=== PATIENT | male | born 1965 | race Caucasian/White ===

== ENCOUNTER 2020-07-01 18:01 | Emergency (ER) | payer MEDICARE, OTHER ==
[~2020-07-01] VITALS: Ht 182.9 cm; Wt 83.5 kg
[~2020-07-01 18:01] MED LIST: ACETAMINOPHEN325 M1 PO; AMLODIPINE BESY10 MG PO; ASCORBIC ACID500 MG PO; ASPIRIN ENTERI325 MG PO; Cholecalciferol PO; DIOVAN80 MG PO; DOXEPIN HCL10 MG PO; ENBREL50 MG/1 ML SC; HYDROCHLOROTH12.5 MG PO; MIRTAZAPINE45 MG PO; NAPROXEN500 MG PO; SERTRALINE HCL50 MG PO; ZINC SULFATE220 M1 PO
--- OUTSIDE RECORDS SUMMARY | 2020-07-01 18:47 | XMS REPORT | Continuity of Care Document ---
Author Author [facility] t Organization [facility] Address [address] [place] [id number] Phone Unavailable Care Team Providers Care Cloth Dyeing Range Tender Name Role Phone NO, PCP PCP Unavailable ROXANE OLIVER Attphys Unavailable ROXANE OLIVER Admphys Unavailable Payers Payer Name Policy Type Policy Number Effective Date Expiration Date Dat [place] Medicare A & B [id number] 2013 00:00:00 [facility] [id number] [facility] Problems Condition Name Condition Details Condition Category Status Onset Date Resolution Date Last Treatment Date Treating Clinician Comments Source Pneumonia Problem Active [facility] Altered mental status Problem Active [facility] Allergies, Adverse Reactions, Alerts This patient has no known allergies or adverse reactions. Social History Social Habit Start Date Stop Date Quantity Comments Source Sex Assigned At 1965 00:00:00 1965 00[birth year]:00 Male [facility] Medications Ordered Medication Name Filled Medication Name Start Date Stop Da te Current Medication? Ordering Clinician Indication Dosage Frequency Signature (SIG) Comments Components Source Ascorbic Acid Ascorbic Acid 2020-06-22 13:48:00 Yes 10 00 Twice A Day [facility] Aspirin (Aspirin Enteric Coated) 325 Mg TABEC Aspirin (Aspirin Enteric Coated) 325 Mg TABEC 2020-06-22 13:48:00 Yes 325 Daily for C ovid [facility] Cholecalciferol Cholecalciferol 2020-06-22 13:48:00 Yes 400 Daily [facility] Zinc Sulfate Zinc Sulfate 2020-06-22 13:48:00 Yes 220 Twice A Day [facility] Acetaminophen Acetaminophen 2020-06-22 13:43:00 Yes 650 Every 6 Hours as needed for Mild Pain (1-3) Or Fever>100.8 [facility] Valsartan (Diovan) 80 Mg TAB Valsartan (Diovan) 80 Mg TAB 2020-05-31 4 13:43:00 Yes 80 Bedtime [facility] Doxepin Hcl Doxepin Hcl Yes 10 Daily [facility] Etanercept (Enbrel) 50 Mg/1 Ml DISP.SYRIN Etanercept ( Enbrel) 50 Mg/1 Ml DISP.SYRIN Yes 50 Weekly [facility] Hydrochlorothiazide Hydrochlorothiazide Yes 12.5 Daily [facility] Mirtazapine Mirtazapine Yes 45 Bedtime [facility] Naproxen Naproxen Yes 500 Twice A Day for Prn Pa in [facility] Sertraline Hcl Sertraline Hcl Yes 50 Daily [facility] Amlodipine Besylate Amlodipine Besylate 2020-06-22 00:00:[address] [facility] Vital Signs Vital Name Observation Time Observation Value Comments Source Body Temperature 2020-06-22 12:19:00 98.1 [degF] [facility] Weight 2020-06-22 01:09:00 184.13 [lb_av] [facility] BMI (Body Mass Index) 2020-06-22 01:09:00 25.0 kg/m2 [facility] Procedures Procedure Date / Time Performed Performing Clinician [facility] e Magnetic resonance imaging of brain without contrast 2020-06-22 00:00:00 [facility] Computed tomography of brain without radiopaque contrast 2020-05 00:00:00 [facility] Plan of Care Planned Activity Planned Date Details Comments Source Instructions COVID-19: 02/13/2020 [facility] Encounters Start Date/Time End Date/Time Encounter Type Admission Type Attendi [facility] Care Department Encounter ID Source 2020-06-20 17:18:00 2020-06-22 17:00:00 Discharged Inpatient 1 KILLAM, ROXANE [facility] [id number] [facility] Results Test Description Test Time Test Comments Results Result Comments Source MRI BRAIN WO 2020-06-22 10:41:00 [facility] [address] [address] Patient Name: UGS GALEANO MR #: [id number] : 1965 Age/Sex: 55/M Req #: [id number] Adm Physician: ROXANE OLIVER MD Ordered by: PRINCE DE SANTIAGO MD Report #: [id number] Location: [facility] Room/Bed: [place] [address] Procedure: [id number] MRI/MRI BRAIN WO Exam Date: Exam Time: REPORT STATUS: Signed History: Altered mental status/lethargy in a COVID + patient Comparison studies: Head CT 06/20/2020. Technique: Sagittal and axial T2 FS, axial DWI, axial T2*GRE, axial T1 FLAIR and axial coronal T2 FLAIR. Intravenous contrast: None Findings: Scalp: Normal in signal. No masses. Bone marrow: Normal in signal intensity. Brain sulci: Appropriate for age. Ventricles: Normal in size. No hydrocephalus. Extra axial spaces: No mass, no fluid collection. Parenchyma: No abnormal signal intensities. No masses, hemorrhage, acute ischemia chronic cortical insults. Suprasellar region: No abnormalities. Craniocervical junction: Patent foramen magnum. No Chiari malformation. Vessels: Normal flow-voids in the arteries and sinuses. IMPRESSION: 1. No intracranial abnormalities. 2. No changes from the prior head CT of 06/20/2020. Signed by: Dr. Pinky Mcgowan M.D. on 06/22/2020 10:48 AM Dictated By: PINKY MCGOWAN MD 47 Transcribed By: LISA on 06/22/201047 COPY TO: PRINCE DE SANTIAGO MD Blood leukocytes automated count (number/volume) 2020-06-21 05:19:00 Test Item White Blood Count (test code = 6690-2) 7.31 4.8-10.8 [facility] erythrocytes automated count (number/volume)2020-06-21 05:19:00* Test Item Value Reference Range Interpretation Comments Red Blood Count (test code = 789-8) 5.48 4.3-5.7 [facility] hemoglobin measurement (moles/volume)2020-06-21 05:19:00* Test Item Value Reference Range Interpretation Comments Hemoglobin (test code = 08124-3) 16.5 14.0-18.0 [facility] Austin[facility] blood hematocrit (volume fraction)2020-06-21 05:19:00* Test Item Value Reference Range Interpretation Comments Hematocrit (test code = 4544-3) 48.7 38.2-49.6 [facility] AustinAutom[facility] erythrocyte mean corpuscular kgcams1686-96-28 05:19:00* Test Item Value Reference Range Interpretation Comments Mean Corpuscular Volume (test code = 787-2) 88.9 81-99 [facility] Austin[facility] erythrocyte mean corpuscular hemoglobin (mass per erythrocyte)2020-06-21 05:19:00* Test Item Value Reference Range Interpretation Comments Mean Corpuscular Hemoglobin (test code = 785-6) 30.1 28-32 [facility] Austin[facility] erythrocyte mean corpuscular hemoglobin concentration measurement (mass/volume)2020-06-21 05:19:00* Test Item Value Reference Range Interpretation Comments Mean Corpuscular Hemoglobin Concent (test code = 786-4) 33.9 31-35 [facility] AustinRDW YnkXl-Fic0992-13-23 05:19:00* Test Item Value Reference Range Interpretation Comments Red Cell Distribution Width (test code = 84214-0) 13.6 11.7 -14.4 [facility] Austin[facility] blood platelet count (count/volume)2020-06-21 05:19:00* Test Item Value Reference Range Interpretation Comments Platelet Count (test code = 777-3) 213 140-360 [facility] AustinAutom[facility] blood segmented neutrophil count as percentage of total yirhgcvrwm8751-31-10 05:19:00* Test Item Value Reference Range Interpretation Comments Neutrophils (%) (Auto) (test code = 58642-4) 68.1 38.7-80.0 [facility] Austin[facility] blood lymphocyte count as percentage ot total ytiauruiuh0208-24-07 05:19:00* Test Item Value Reference Range Interpretation Comments Lymphocytes (%) (Auto) (test code = 736-9) 17.5 18.0-39.1 [facility] AustinAutom[facility] blood monocyte count as percentage of total kjjwzwhmlt0479-75-98 05:19:00* Test Item Value Reference Range Interpretation Comments Monocytes (%) (Auto) (test code = 5905-5) 12.6 4.4-11.3 [facility] Austin[facility] blood eosinophil count as percentage of total lznypkoiel3263-93-35 05:19:00* Test Item Value Reference Range Interpretation Comments Eosinophils (%) (Auto) (test code = 713-8) 1.1 0.0-6.0 [facility] Austin[facility] blood basophil count as percentage of total zfhmlocioc7191-24-86 05:19:00* Test Item Value Reference Range Interpretation Comments Basophils (%) (Auto) (test code = 706-2) 0.3 0.0-1.0 [facility] AustinFluoroscopic procedure less than one hour kebumtuk0273-59-03 05:19:00* Test Item Value Reference Range Interpretation Comments IM GRANULOCYTES % (test code = IM GRANULOCYTES %) 0.4 0.0- 1.0 [facility] Austin[facility] blood neutrophil count 2020-06-21 05:19:00* Test Item Value Reference Range Interpretation Comments Neutrophils # (Auto) (test code = 751-8) 5.0 2.1-6.9 [facility] AustinBlood lymphocytes count (number/volume) 2020-06-21 05:19:00* Test Item Value Reference Range Interpretation Comments Lymphocytes # (Auto) (test code = 31233-7) 1.3 1.0-3.2 [facility] AustinBlood monocytes automated count (number/volume)2020-06-21 05:19:00* Test Item Value Reference Range Interpretation Comments Monocytes # (Auto) (test code = 742-7) 0.9 0.2-0.8 [facility] Austin[facility] blood eosinophil count 2020-06-21 05:19:00* Test Item Value Reference Range Interpretation Comments Eosinophils # (Auto) (test code = 711-2) 0.1 0.0-0.4 [facility] AustinAutom[facility] blood basophil count (count/volume)2020-06-21 05:19:00* Test Item Value Reference Range Interpretation Comments Basophils # (Auto) (test code = 704-7) 0.0 0.0-0.1 [facility] AustinFluoroscopic procedure less than one hour rvulnyed8814-44-69 05:19:00* Test Item Value Reference Range Interpretation Comments Absolute Immature Granulocyte (auto (raul t code = Absolute Immature Granulocyte (auto) 0.03 0-0.1 [facility] sodium measurement (moles/volume)2020-06-21 05:19:00* Test Item Value Reference Range Interpretation Comments Sodium Level (test code = 2951-2) 143 136-145 [facility] plasma potassium measurement (moles/volume)2020-06-21 05:19:00* Test Item Value Reference Range Interpretation Comments Potassium Level (test code = 2823-3) 3.9 3.5-5.1 [facility] plasma chloride measurement (moles/volume)2020-06-21 05:19:00* Test Item Value Reference Range Interpretation Comments Chloride Level (test code = 2075-0) 108 98-107 [facility] or plasma carbon dioxide, total measurement (moles/volume)2020-06-21 05:19:00* Test Item Value Reference Range Interpretation Comments Carbon Dioxide Level (test code = 2028-9) 23 22-29 [facility]er[facility] or plasma anion gof8079-83-80 05:19:00* Test Item Value Reference Range Interpretation Comments Anion Gap (test code = 86218-4) 15.9 8-16 [facility] plasma urea nitrogen measurement (mass/volume)2020-06-21 05:19:00* Test Item Value Reference Range Interpretation Comments Blood Urea Nitrogen (test code = 3094-0) 17 7-26 [facility] plasma creatinine measurement (mass/volume)2020-06-21 05:19:00* Test Item Value Reference Range Interpretation Comments Creatinine (test code = 2160-0) 0.87 0.72-1.25 [facility] or plasma urea nitrogen/creatinine mass wffev4530-32-50 05:19:00* Test Item Value Reference Range Interpretation Comments BUN/Creatinine Ratio (test code = 3097-3) 20 6-25 [facility] AustinEstimated glomerular filtration rate (GFR) qbualhoiwhezi4400-53-90 05:19:00* Test Item Value Reference Range Interpretation Comments Estimat Glomerular Filtration Rate (test code = 667137473) > 60 >60 Ranges were taken from the National Kidney Disease Education Program and the [facility] [employer] literature.Reference ranges:60 or greater: Tebwkm40-36 ( for 3 consecutive months): Chronic kidney disease 15 or less: Kidney failureAscension Seton Medical Center AustinGlucose gjylovsflyz0505-43-57 05:19:00* Test Item Value Reference Range Interpretation Comments Glucose Level (test code = XKR1445) 86 74-118 [facility] plasma calcium measurement (mass/volume)2020-06-21 05:19:00* Test Item Value Reference Range Interpretation Comments Calcium Level (test code = 30948-6) 9.6 8.4-10.2 [facility] AustinFluoroscopic procedure less than one hour fdxtrtxw4873-20-01 05:19:00* Test Item Value Reference Range Interpretation Comments Hemoglobin A1c Percent (test code = Hemoglobin A1c Percent) 4.6 4.0-7.0 [facility] AustinPhosphorus rcfxibyfsto3385-83-33 05:19:00 * Test Item Value Reference Range Interpretation Comments Phosphorus Level (test code = GGA1680) 3.5 2.3-4.7 [facility] or plasma magnesium measurement (mass/volume)2020-06-21 05:19:00* Test Item Value Reference Range Interpretation Comments Magnesium Level (test code = 30613-8) 2.0 1.3-2.1 [facility] or plasma total bilirubin measurement (mass/volume)2020-06-21 05:19:00* Test Item Value Reference Range Interpretation Comments Total Bilirubin (test code = 1975-2) 0.7 0.2-1.2 [facility] AustinFluoroscopic procedure less than one hour vwuurrhe1732-36-33 05:19:00* Test Item Value Reference Range Interpretation Comments Aspartate Amino Transf (AST/SGOT) (test code = Aspartate Amino Transf (AST/SGOT)) 34 5-34 [facility]er[facility] or plasma alanine aminotransferase measurement (enzymatic activity/volume)2020-06-21 05:19:00* Test Item Value Reference Range Interpretation Comments Alanine Aminotransferase (ALT/SGPT) (test code = 1742-6) 60 0-55 [facility]er[facility] or plasma protein measurement (mass/volume)2020-06-21 05:19:00* Test Item Value Reference Range Interpretation Comments Total Protein (test code = 2885-2) 8.1 6.5-8.1 [facility]er[facility] or plasma albumin measurement (mass/volume)2020-06-21 05:19:00* Test Item Value Reference Range Interpretation Comments Albumin (test code = 1751-7) 3.9 3.5-5.0 [facility] AustinPlasma globulin measurement (mass/volume) 2020-06-21 05:19:00* Test Item Value Reference Range Interpretation Comments Globulin (test code = 56973-8) 4.2 2.3-3.5 [facility]er[facility] or plasma albumin/globulin mass idesf2844-91-35 05:19:00* Test Item Value Reference Range Interpretation Comments Albumin/Globulin Ratio (test code = 1759-0) 0.9 0.8-2.0 [facility]er[facility] or plasma alkaline phosphatase measurement (enzymatic activity/volume)2020-06-21 05:19:00* Test Item Value Reference Range Interpretation Comments Alkaline Phosphatase (test code = 6768-6) 53 40-150 [facility]er[facility] or plasma triglyceride measurement (mass/volume)2020-06-21 05:19:00* Test Item Value Reference Range Interpretation Comments Triglycerides Level (test code = 2571-8) 143 0-149 [facility] or plasma cholesterol measurement (mass/volume)2020-06-21 05:19:00* Test Item Value Reference Range Interpretation Comments Cholesterol Level (test code = 2093-3) 230 0-199 Less than 200 mg/dL Low Jiks404 - 239 mg/dL Borderline Sxij336 m g/dl and greater High Risk [facility]er[facility] or plasma cholesterol in LDL measurement (mass/volume) 2020-06-21 05:19:00* Test Item Value Reference Range Interpretation Comments LDL Cholesterol (test code = 2089-1) 171 60-130 [facility] plasma cholesterol in HDL measurement (mass/volume)2020-06-21 05:19:00* Test Item Value Reference Range Interpretation Comments HDL Cholesterol (test code = 2085-9) 30 40-60 [facility]er[facility] or plasma total cholesterol/cholesterol in HDL mass jbefs0202-35-11 05:19:00* Test Item Value Reference Range Interpretation Comments Cholesterol/HDL Ratio (test code = 9830-1) 7.7 3.9-4.7 [facility] AustinUrine color zxyzuhrqbvqef0910-64-19 14:36:00* Test Item Value Reference Range Interpretation Comments Urine Color (test code = 5778-6) YELLOW YELLOW [facility] AustinUrine lmbwvng3535-96-69 14:36:00* Test Item Value Reference Range Interpretation Comments Urine Clarity (test code = 38211-3) SL CLOUDY CLEAR [facility] Hospitalpecific gravity of Urine by Test strip 2020-06-20 14:36:00* Test Item Value Reference Range Interpretation Comments Urine Specific Colon (test code = 5811-5) 1.030 1.010-1.02 5 [facility] AustinUrine pH measurement by automated test atszw8905-75-10 14:36:00* Test Item Value Reference Range Interpretation Comments Urine pH (test code = 43501-5) 5.5 5-7 [facility] AustinUrine leukocyte esterase detection by oytztvfs4219-32-78 14:36:00* Test Item Value Reference Range Interpretation Comments Urine Leukocyte Esterase (test code = 5799-2) NEGATIVE NEGATIVE [facility] AustinUrine nitrite tetwqdbzp3508-89-62 14:36:00* Test Item Value Reference Range Interpretation Comments Urine Nitrite (test code = 91219-0) NEGATIVE NEGATIVE [facility] AustinU[facility] protein measurement by test strip (mass/volume)2020-06-20 14:36:00* Test Item Value Reference Range Interpretation Comments Urine Protein (test code = 5804-0) 1+ NEGATIVE [facility] AustinU[facility] glucose wpvptgnrq7328-63-82 14:36:00* Test Item Value Reference Range Interpretation Comments Urine Glucose (UA) (test code = 2349-9) NEGATIVE NEGATIVE [facility] AustinUrine ketones detection by automated test bteuz1349-35-38 14:36:00* Test Item Value Reference Range Interpretation Comments Urine Ketones (test code = 81100-4) NEGATIVE NEGATIVE [facility] AustinUrine opiates screening odyv4160-09-45 14:36:00* Test Item Value Reference Range Interpretation Comments Urine Opiates Screen (test code = 34838-5) NEGATIVE NEGATIVE ALL TESTS PERFORMED MANUALLY ON DeliveryChef.in TOX/SEE TESTAscension [facility] Center AustinBarbiturates screen, nmcjm3587-16-59 14:36:00* Test Item Value Reference Range Interpretation Comments Urine Barbiturates Screen (test code = 413774471) NEGATIVE NEGA TIVE [facility] AustinUrine phencyclidine detection by screening qedrez8120-70-52 14:36:00* Test Item Value Reference Range Interpretation Comments Urine Phencyclidine Screen (test code = 21144-6) NEGATIVE NEGAT FRANCES [facility] AustinUrine amphetamines detection by screen method > 1000 ng/yQ9849-97-70 14:36:00* Test Item Value Reference Range Interpretation Comments Urine Amphetamines Screen (test code = 92933-4) NEGATIVE NEGATI VE [facility] AustinFluoroscopic procedure less than one hour qtmeyfxd7281-91-42 14:36:00* Test Item Value Reference Range Interpretation Comments Urine Methamphetamines Screen (test code = Urine Metha mphetamines Screen) NEGATIVE NEGATIVE [facility] AustinUrine benzodiazepines detection by screening iorgzh1329-57-49 14:36:00* Test Item Value Reference Range Interpretation Comments Urine Benzodiazepines Screen (test code = 12641-8) NEGATIVE NEG ATIVE [facility] AustinU[facility] cocaine measurement (mass/volume) 2020-06-20 14:36:00* Test Item Value Reference Range Interpretation Comments Urine Cocaine Screen (test code = 3398-5) NEGATIVE NEGATIVE [facility] AustinUrine cannabinoids detection by screening fpysgn5455-71-96 14:36:00* Test Item Value Reference Range Interpretation Comments Urine Cannabinoids Screen (test code = 37519-4) NEGATIVE NEGATI VE THESE RESULTS ARE FOR MEDICAL TREATMENT ONLYTHIS REPORT CONTAINS UNCONFIR MED SCREENING RESULTS*POSITIVE RESULTS WILL BE CONFIRMED BY REFERENCE LAB UPON R EQUEST CUT-OFFDRUG CLASS CONCENTRATION ng/mLAmphetamines 1000Methamphetamines 1000Cocaine 300Opiate 300Phencyc lidine 25Cannabinoid 50Barbiturates 300Benzodiazepine 300Methadone 300[facility] AustinUrine methadone ehuphn3092-75-02 14:36:00* Test Item Value Reference Range Interpretation Comments Urine Methadone Screen (test code = 65718-2) NEGATIVE NEGATIVE THESE RESULTS ARE FOR MEDICAL TREATMENT ONLYTHIS REPORT CONTAINS UNCONFIR MED SCREENING RESULTS*POSITIVE RESULTS WILL BE CONFIRMED BY REFERENCE LAB UPON R EQUEST CUT-OFFDRUG CLASS CONCENTRATION ng/mLAmphetamines 1000Methamphetamines 1000Cocaine Metabolite 300Opiate 300Phencyc lidine 25Cannabinoid 50Barbiturates 300Benzodiazepine 300Methadone 300[facility] AustinUrine urobilinogen measurement by test strip (mass/volume)2020-06-20 14:36:00* Test Item Value Reference Range Interpretation Comments Urine Urobilinogen (test code = 64387-8) 0.2 0.2-1 [facility] AustinU[facility] total bilirubin measurement (mass/volume)2020-06-20 14:36:00* Test Item Value Reference Range Interpretation Comments Urine Bilirubin (test code = 1978-6) NEGATIVE NEGATIVE [facility] AustinUrine erythrocytes fijnrpfrp3978-91-26 14:36:00* Test Item Value Reference Range Interpretation Comments Urine Blood (test code = 25423-8) NEGATIVE NEGATIVE [facility] AustinAutomated urine sediment leukocyte count by microscopy (number/high power field)2020-06-20 14:36:00* Test Item Value Reference Range Interpretation Comments Urine WBC (test code = 5821-4) 0-5 0-5 [facility] AustinErythrocytes detection in urine sediment by light qxxqicbqur9404-36-14 14:36:00* Test Item Value Reference Range Interpretation Comments Urine RBC (test code = 19451-2) NONE 0-5 [facility] AustinBacteria detection in urine sediment by light oxftbzvysf6666-98-09 14:36:00* Test Item Value Reference Range Interpretation Comments Urine Bacteria (test code = 95248-1) FEW NONE [facility] AustinEpithelial cells detection in urine sediment by light vssbngeofq6472-44-25 14:36:00* Test Item Value Reference Range Interpretation Comments Urine Epithelial Cells (test code = 26880-0) NONE NONE [facility] AustinAmorphous sediment detection in urine sediment by light rdsffwmive3485-88-94 14:36:00* Test Item Value Reference Range Interpretation Comments Urine Amorphous Sediment (test code = 8246-1) MODERATE FEW [facility] AustinFluoroscopic procedure less than one hour ginookad1638-37-05 14:36:00* Test Item Value Reference Range Interpretation Comments Coronavirus (PCR) (test code = Coronavirus (PCR)) DETECTED NOTD ETECTED SARS-COV-2 (COVID19), HIGHRISK, RT-PCRPositive (Detected) results are indicative of active infection with SARS-CoV-2. A positive result does not rule out bacter ial infection or co-infection with other viruses. Detection of SARS-CoV-2 viral RNA may not indicate that SARS-CoV-2 is the causative agent for clinical symptom s. Positive and negative predictive values of testing are highly dependent n pre valence. False Positive test results are more likely when prevalence is moderate to low.Testing performed on sample type which has not been specifically validat ed. FDA believes this sample type could be used for this testing. This report ma y be amended or corrected based on validation studies in progress.The expected r esult is negative (Not Detected).The SARS-CoV-2 test is intended for the qualita tive detection of nucleic acid from SARS-CoV-2 in upper and lower respiratory sp ecimens. Testing methodology is real-time RT-PCR utilizing the [facility] SARS-CoV-2 ki t distributed by [employer].Test results must be correlated with clinical presentation and evaluated in the context of other laboratory and epidemiologic data. Test pe rformance can be affected because the epidemiology and clinical spectrum of infe ction caused by SARS-CoV-2 is not fully known. For example, the optimum types of specimens to collect and when during the course of infection these specimens ar e most likely to contain detectable viral RNA may not be known.This test has not been Food and Drug Administration (FDA) cleared or approved and has been author ized by FDA under an Emergency Use Authorization (EUA). The test is only authori zed for the duration of the declaration that circumstances exist justifying the authorization of emergency use of in vitro diagnostic tests for detection and/or diagnosis of SARS-CoV-2 under section 564(b) of the Act, 21 U.S.C. section 360b bb-3(b)(1), unless the authorization is terminated or revoked sooner. [facility] are certified under the Clinical Laboratory Improvement Am endments of 1988 (CLIA), 42 U.S.C. section 263a, to perform high complexity test s.Specimen sent to [facility] and testing performed by [facility] [address] [place] [address] [phone] atory Director: Anders Jovel M.D.CLIA # [id number] [facility] [id number] 14:09:00* Test Item Value Reference Range Interpretation Comments Ammonia (test code = 45563-0) 64 31-123 [id number] 14:06:00 [facility] [address] [address] Patient Name: GUS GALEANO MR #: [id number] : 1965 Age/Sex: 55/M Req #: [id number] Adm Physician: Ordered by: MAGDA HUGHES MD Report #: [id number] Location: ER Room/Bed: Procedure: [id number] CT/CT BRAIN WO E xam Date: 06/20/20 Exam Time: 1336 REPORT STATUS: Signed EXAMINATION: Head CT without contrast HISTORY: Altered mental status, lethargic COMPARISON: None avai lable TECHNIQUE: Helical axial images of the head were obtained. Reformatted coronal and sagittal images from the axial data. Dose modulation, iterative reconstruction, and/or weight based adjustment of the mA/kV was utilized to r educe the radiation dose to as low as reasonably achievable. FINDINGS: Parenchyma: 1. No abnormal densities. 2. No mass or hemorrhage. No CT evidence of acute territorial vascular insult. Extra-axial spaces:No abnormal density. No extra-axial fluid collections Brain volum e: Normal for age. Ventricles: No hydrocephalus or displacement. Arteries: No density suggestive of thrombus. Dural sinuses: No abnorma l density. Foramen magnum: No mass, Chiari malformation, or basilar inva gination. Sella: No obvious mass. Paranasal/mastoid sinuses: Im aged portions unremarkable. Skull/Scalp: No lytic or blastic lesions. N o fractures. IMPRESSION: Normal head CT. Signed by: Dr. Errol toney M.D. on 06/20/2020 2:07 PM Dictated By: ERROL CUEVA MD Electronicall y Signed By: ERROL CUEVA MD on 06/20/201406 Transcribed By: LISA on 1406 COPY TO: MAGDA HUGHES MD CHEST SINGLE (PORTABLE) 2020-06-20 14:04:[address] [address] Patient Name: GUS GALEANO MR #: [id number] : 1965 Age/Sex: 55/M Req #: [id number] Adm Physician: Ordered by: MAGDA HUGHES MD Report #: [id number] Location: ER Room/Bed: Procedure: [id number] DX/CHEST SINGLE ( PORTABLE) Exam Date: 06/20/20 Exam Time: 1345 REPORT STATUS: Signed EXAMINATION: CH EST SINGLE (PORTABLE) INDICATION: Altered mental status COMPARISON : None FINDINGS: LINES/TUBES:None LUNGS:The lungs are well-i nflated. No focal consolidation or pulmonary edema. PLEURA:No pleural effus ion or pneumothorax. MEDIASTINUM:The cardiomediastinal silhouette appears n ormal in size and shape. BONES/SOFT TISSUES:No acute osseous injury. A BDOMEN:No free air under the diaphragm. IMPRESSION: No focal pneumoni a or pulmonary edema. Signed by: Russell Mendoza MD on 06/20/2020 2:05 PM Dictated By: RUSSELL MENDOZA MD 04 Transcribed By: LISA on 06/20/201404 COPY TO: MAGDA HUGHES MD Prothrombin time (PT) in platelet poor plasma by coagulation assay 2020-06-20 13:41:00* Test Item Value Reference Range Interpretation Comments Prothrombin Time (test code = 5902-2) 12.5 11.9-14.5 [facility] Platelet poor plasma by Coagulation [id number] 13:41:00* Test Item Value Reference Range Interpretation Comments Prothromb Time International Ratio (test code = 6301-6) 0.89 Oral Anticoagulant Therapy INR Values:1. Low Intensity Therapy 1.5 - 2.02 . Moderate Intensity Therapy 2.0 - 3.03. High Intensity Therapy(1) 2.5 - 3. 54. High Intensity Therapy(2) 3.0 - 4.05. Panic Value INR > 5.0 [facility] procedure less than one hour [id number] 13:41:00* Test Item Value Reference Range Interpretation Comments Lactic Acid Level (test code = Lactic Acid Level) 1.7 0.5- 2.0 [facility] creatine kinase measurement (enzymatic activity/volume)2020-06-20 13:41:00* Test Item Value Reference Range Interpretation Comments Creatine Kinase (test code = 2157-6) 145 30-200 [facility] creatine kinase MB measurement (mass/volume)2020-06-20 13:41:00* Test Item Value Reference Range Interpretation Comments Creatine Kinase MB (test code = 59829-0) 1.80 0-5.0 [facility] by highly sensitive enzyme [id number] 13:41:00* Test Item Value Reference Range Interpretation Comments Troponin I (test code = 56680-0) 0.090 0-0.300 [facility] acetaminophen measurement by screening method (mass/volume)2020-06-20 13:41:00* Test Item Value Reference Range Interpretation Comments Acetaminophen Level (test code = 52000-2) < 3.0 10-30 [facility] plasma thyrotropin measurement by detection limit <= 0.005 miu/l (units/volume)2020-06-20 13:41:00* Test Item Value Reference Range Interpretation Comments Thyroid Stimulating Hormone (TSH) (test code = 46753-2) 1.838 0.350-4.940 [facility] plasma salicylates measurement (mass/volume)2020-06-20 13:41:00* Test Item Value Reference Range Interpretation Comments Salicylates Level (test code = 4024-6) < 5.0 0-30 [facility]
--- NOTE | 2020-07-01 19:12 | Emergency Department Note ---
History of Present Illnes History of Present Illness Chief Complaint: Respiratory History of Present Illness This is a 55 year old male arrived to the ED with continued complaints of COVID positive symptoms. Patient continues to complain of generalized malaise and weakness Historian: Patient Arrival Mode: Car Onset (how long ago): week(s) Severity: mild Onset quality: gradual Duration (how long): week(s) Timing of current episode: constant Progression: unchanged Chronicity: recurrent Context: Reports recent illness Relieving factors: none Past Medical/Family History Physician Review I have reviewed the patient's past medical and family history. Any updates have been documented here. Past Medical History Recent Fever: No Clinical Suspicion of Infectio: No New/Unexplained Change in Ment: No Past Medical History: Hypertension Other Medical History: INSOMMIA Past Surgical History: None Social History Smoking Cessation: Never Smoker Alcohol Use: None Any Illegal Drug Use: No Other Any Pre-Existing Lines (PICC,: No Review of Systems Review of Systems Constitutional: Reports as per HPI, Reports malaise, Reports weakness EENTM: Reports no symptoms Cardiovascular: Reports no symptoms Respiratory: Reports as per HPI, Reports cough Gastrointestinal: Reports no symptoms Genitourinary: Reports no symptoms Musculoskeletal: Reports no symptoms Integumentary: Reports no symptoms Neurological: Reports no symptoms Psychological: Reports no symptoms Endocrine: Reports no symptoms Hematological/Lymphatic: Reports no symptoms Review of other systems: All other systems negative Physical Exam Related Data Allergies: Coded Allergies: No Known Allergies (Unverified , 06/20/20) Triage Vital Signs Vital Signs Date Time Temp Pulse Resp B/P (MAP) Pulse Ox O2 Delivery O2 Flow Rate FiO2 07/01/20 18:12 97.8 89 37 131/87 98 Room Air Vital signs reviewed: Yes Physical Exam CONSTITUTIONAL Constitutional: Present well-developed, Present well-nourished HENT HENT: Present normocephalic, Present atraumatic, Present oropharynx clear/moist, Present nose normal HENT L/R: Present left ext ear normal, Present right ext ear normal EYES Eyes: Reports PERRL, Reports conjunctivae normal NECK Neck: Present ROM normal PULMONARY Pulmonary: Present effort normal, Present breath sounds normal CARDIOVASCULAR Cardiovascular: Present regular rhythm, Present heart sounds normal, Present capillary refill normal, Present normal rate GASTROINTESTINAL Abdominal: Present soft, Present nontender, Present bowel sounds normal GENITOURINARY Genitourinary: Present exam deferred SKIN Skin: Present warm, Present dry MUSCULOSKELETAL Musculoskeletal: Present ROM normal NEUROLOGICAL Neurological: Present alert, Present oriented x 3, Present no gross motor or sensory deficits PSYCHOLOGICAL Psychological: Present mood/affect normal, Present judgement normal Assessment & Plan Medical Decision Making MDM 55-year-old well-appearing male arrives to the ED with complaints of cough fever loss of taste and smell. Patient is clinically presenting with signs and symptoms consistent with Covid 19. Patient informed he is positive until proven otherwise. Patient's oxygen saturation remained 99% even on exertion, no evidence of tachypnea or dyspnea noted in the ED. Spoke present length about the importance of sleeping on his stomach and rotating from side to side. In the light of the Covid pandemic, disaster medicine care was given- Patient understands the emergency department is open at all times to serve his needs as well as the needs of the community and given that he requires no supplemental oxygen and is speaking in full sentences with no distress he is stable to go home and quarantine. Assessment & Plan Final Impression: (1) COVID-19 Depart Disposition: HOME, SELF-CARE Last Vital Signs Date Time Temp Pulse Resp B/P (MAP) Pulse Ox O2 Delivery O2 Flow Rate FiO2 07/01/20 18:12 97.8 89 37 131/87 98 Room Air Home Meds Active Scripts Zinc Sulfate (ZINC SULFATE) 220 Mg Capsule, 220 MG PO BID for 30 Days, #60 CAP 0 Refills Prov:KATHY REID NP 06/22/20 [Cholecalciferol] 400 UNIT TAB No Conflict Check, 400 UNIT PO DAILY for 30 Days, #30 TAB 0 Refills Prov:KATHY REID NP 06/22/20 Ascorbic Acid (ASCORBIC ACID) 500 Mg Tablet, 1000 MG PO BID for 30 Days, #120 TAB 0 Refills Prov:KATHY REID NP 06/22/20 Aspirin (ASPIRIN ENTERIC COATED) 325 Mg Tabec, 325 MG PO DAILY for COVID for 30 Days, #30 TAB 0 Refills Prov:KATHY REID NP 06/22/20 Valsartan (DIOVAN) 80 Mg Tab, 80 MG PO HS for 30 Days, #30 TAB 0 Refills Prov:KATHY REID NP 06/22/20 Acetaminophen (ACETAMINOPHEN) 325 Mg Tablet, 650 MG PO Q6H PRN for Mild Pain (1- 3) or Fever>100.8 for 30 Days, #30 TAB 0 Refills Prov:KATHY REID [employer] 06/22/20 Reported Medications Sertraline Hcl (SERTRALINE HCL) 50 Mg Tablet, 50 MG PO DAILY, #30 TAB 06/22/20 Naproxen (NAPROXEN) 500 Mg Tablet, 500 MG PO BID for PRN pain 06/20/20 Doxepin Hcl (DOXEPIN HCL) 10 Mg Capsule, 10 MG PO DAILY 06/20/20 Hydrochlorothiazide (HYDROCHLOROTHIAZIDE) 12.5 Mg Tablet, 12.5 MG PO DAILY 06/20/20 Etanercept (ENBREL) 50 Mg/1 Ml Disp.syrin, 50 MG SC weekly weekly on thursday06/20/20 Mirtazapine (MIRTAZAPINE) 45 Mg Tablet, 45 MG PO HS 06/20/20 LUL BERNAL DO Jul 01, 2020 19:11
== END 2020-07-01 18:48 | disposition home or self-care (01) ==
LOC: ER 18:21
DX: U07.1 COVID-19 (principal); R50.9 Fever, unspecified; R05 Cough; I10 Essential (primary) hypertension; G47.00 Insomnia, unspecified
CPT/HCPCS: 99283

== ENCOUNTER 2023-01-27 09:39 | Emergency (ER) | payer MEDICARE ==
[~2023-01-27] VITALS: Ht 172.7 cm; Wt 83.5 kg
[2023-01-27] MEDS ORDERED: SODIUM CHLORIDE 0.9% 1000ML 1,000 ML IV STA (10:48)
[2023-01-27] MEDS ORDERED: TETANUS/DIPHTHERIA TOX ADULT 0.5 ML SYR IM ONE (11:00)
[2023-01-27] MEDS ORDERED: SODIUM CHLORIDE 0.9% 1000ML 1,000 ML ONE (11:18)
[2023-01-27 11:40] LABS: BASOPHILS # (AUTO) 0.1 (0.0-0.1); BASOPHILS % 0.5 % (0.0-1.0); EOSINOPHILS # (AUTO) 0.5 (0.0-0.4); EOSINOPHILS % 4.7 % (0.0-6.0); HEMATOCRIT 40.5 % (38.2-49.6); HEMOGLOBIN 13.5 g/dL (14.0-18.0); LYMPHOCYTES # (AUTO) 1.6 (1.0-3.2); LYMPHOCYTES % 16.9 % (18.0-39.1); MEAN CORPUSCULAR HEMOGLOBIN 30.1 pg (28-32); MEAN CORPUSCULAR HGB CONC 33.3 g/dL (31-35); MEAN CORPUSCULAR VOLUME 90.4 fL (81-99); MONOCYTES # (AUTO) 0.9 (0.2-0.8); MONOCYTES % 8.9 % (4.4-11.3); NEUTROPHILS # (AUTO) 6.6 (2.1-6.9); NEUTROPHILS % 67.6 % (38.7-80.0); PLATELET COUNT 216 x10e3/uL (140-360); RED BLOOD COUNT 4.48 x10e6/uL (4.3-5.7); RED CELL DISTRIBUTION WIDTH 15.2 % (11.7-14.4)
[2023-01-27 12:09] LABS: INR 0.98; PARTIAL THROMBOPLASTIN TIME 35.7 seconds (23.8-35.5); PROTHROMBIN TIME 13.2 seconds (11.9-14.5)
[2023-01-27 12:10] LABS: POTASSIUM 3.8 mmol/L (3.5-5.1)
[2023-01-27 12:20] LABS: CREATINE KINASE MB 3.9 ng/mL (0-5.0)
[2023-01-27 12:28] LABS: ALBUMIN 3.1 g/dL (3.5-5.0); ALBUMIN/GLOBULIN RATIO 0.9 (0.8-2.0); ANION GAP 14.8 mmol/L (8-16); CREATININE, SERUM 0.82 mg/dL (0.72-1.25); MAGNESIUM 1.9 MG/DL (1.3-2.1)
== END 2023-01-27 15:05 | disposition other institution (70) ==
LOC: ER 10:05
DX: S12.590A Other displaced fracture of sixth cervical vertebra, initial encounter for closed fracture (principal); M45.2 Ankylosing spondylitis of cervical region; I10 Essential (primary) hypertension; M85.88 Other specified disorders of bone density and structure, other site; G47.00 Insomnia, unspecified; Z20.822 Contact with and (suspected) exposure to COVID-19
CPT/HCPCS: 0223U; 36415; 70450; 71045; 72125; 72128; 72131; 72192; 80053; 82550; 82553; 83735; 84484; 85025; 85610; 85730; 90471; 90714; 93005; 99285; J7030